=== PATIENT | male | born 1980 | race Caucasian/White ===

== ENCOUNTER 2016-05-29 08:19 | Outpatient (CLI) ==
[2016-01-03 19:17] VITALS: BMI 30.4
--- NOTE | 2016-05-29 08:51 | US ---
EXAM: Thyroid ultrasound History: Thyroid nodules. Comparison: Thyroid ultrasound 01/31/2011 Technique: Multiple sonographic images through the thyroid gland were obtained. Color duplex Doppl er was used to interrogate vascular flow. Findings: The right lobe of the thyroid measures 4.6 cm x 1.5 cm x 1.7 cm and demonstrates a 0.8 cm hypoechoic nodule. The thyroid isthmus measures 0.3 cm in thickness. The left lobe the thyroid measures 4.4 cm x 1.6 cm x 1.6 cm and demonstrates a 0.7 cm hypoechoic nod ule. The thyroid gland is not hypervascular. No extrathyroidal masses are identified. Impression: Sub-centimeter bilateral thyroid nodules. Recommend followup study in 6 months to docu ment stability.
== END 2016-05-29 08:20 | disposition home or self-care (01) ==
LOC: RAD 08:19
PROVIDERS: ATTEND Internal Medicine Endocrinology, Diabetes & Metabolism
DX: E04.1 Nontoxic single thyroid nodule (principal); R94.6 Abnormal results of thyroid function studies; E10.65 Type 1 diabetes mellitus with hyperglycemia; I10 Essential (primary) hypertension; F31.9 Bipolar disorder, unspecified

== ENCOUNTER 2016-06-24 10:10 | Outpatient (CLI) ==
[2016-01-03 19:17] VITALS: BMI 30.4
[2016-06-24 11:08] LABS: ALBUMIN 4.1 g/dL (3.4-5.0); ALBUMIN/GLOBULIN RATIO 1.41; ANION GAP 11.4; BILIRUBIN,TOTAL 0.85 mg/dL (0.00-1.20); BUN/CREATININE RATIO 19.41; CALCIUM 9.3 mg/dL (8.2-10.2); CREATININE 1.03 mg/dL (0.60-1.10); POTASSIUM 4.4 mmol/L (3.5-5.1)
== END 2016-06-24 10:11 | disposition home or self-care (01) ==
LOC: LAB 10:10
PROVIDERS: ATTEND Internal Medicine Endocrinology, Diabetes & Metabolism
DX: F31.9 Bipolar disorder, unspecified (principal); I10 Essential (primary) hypertension; R94.6 Abnormal results of thyroid function studies; E04.1 Nontoxic single thyroid nodule; E10.65 Type 1 diabetes mellitus with hyperglycemia
CPT/HCPCS: 36415; 80053; 83036; 84439; 84443; 84480

== ENCOUNTER 2017-02-26 23:27 | Outpatient (CLI) ==
[2016-01-03 19:17] VITALS: BMI 30.4
== END 2017-02-26 23:28 | disposition short-term general hospital (02) ==
LOC: AMBL 23:27
PROVIDERS: ATTEND Emergency Medicine
DX: R41.82 Altered mental status, unspecified (principal); E11.9 Type 2 diabetes mellitus without complications

== ENCOUNTER 2017-06-26 08:06 | Outpatient (CLI) | payer OTHER ==
[2016-01-03 19:17] VITALS: BMI 30.4
== END 2017-06-26 08:07 | disposition home or self-care (01) ==
LOC: LAB 08:06
PROVIDERS: ATTEND Internal Medicine Endocrinology, Diabetes & Metabolism
DX: F31.9 Bipolar disorder, unspecified (principal); I10 Essential (primary) hypertension; R94.6 Abnormal results of thyroid function studies; E04.1 Nontoxic single thyroid nodule; E10.65 Type 1 diabetes mellitus with hyperglycemia
CPT/HCPCS: 36415; 80053; 82306; 82533; 82607; 83036; 84439; 84443

== ENCOUNTER 2017-07-12 00:38 | Emergency (ER) ==
--- NOTE | 2017-07-12 01:22 | DI ---
Exam: The right ankle three-view History: Injury and pain Findings / impression: No bony or articular abnormalities are seen. Negative exam.
[2017-07-12 01:24] VITALS: BP 175/94; TEMP 97.9; BMI 33.4
--- NOTE | 2017-07-12 01:38 | DI ---
Exam: Right foot three-view HISTORY: Injury and pain Findings / impression: No bony or articular abnormality. Negative exam.
[2017-07-12] MEDS ORDERED: NORCO 7.5-325 PO STA (01:49)
--- NOTE | 2017-07-12 01:50 | ED.PDOC ---
General ED Provider: Dr. LOY RASCON-ER Chief Complaint: Ankle Pain/Injury Stated Complaint: i rolled my ankle Time Seen by Physician: 00:45 Mode of Arrival: Walk-In Information Source: Patient Exam Limitations: No limitations Primary Care Provider: LOY RASCON Nursing and Triage Documentation Reviewed and Agree: Yes Reviewed sepsis parameters & appropriate labs ordered?: Yes System Inflammatory Response Syndrome: Not Applicable Sepsis Protocol: For patient's 13 years and over: Temp is 96.8 and below OR 101 and greater Pulse >90 BPM Resp >20/minute Acutely Altered Mental Status Are patient's symptoms suggestive of a new infection, such as: -Pneumonia -Skin, Soft Tissue -Endocarditis -UTI -Bone, Joint Infection -Implantable Device -Acute Abdominal Infection -Wound Infection -Meningitis -Blood Stream Catheter Infection -Unknown Musculoskeletal Complaint Exam - Ankle/Foot Complaint/Exam Location of Injury: Reports: Right, Ankle Mechanism of Injury: Reports: Trauma Onset/Duration: this evening Symptoms Are: Reports: Still present Onset of Pain: Reports: Immediate Initial Severity: Mild Current Severity: Moderate Location: Reports: Discrete Character: Reports: Dull, Aching, Throbbing Aggravating: Reports: Movement, Weight bearing Able to Bear Weight: Yes Associated Signs and Symptoms: Reports: Swelling Related History: Reports: Similar episode Lower Extremity Findings: Present: Swelling, Ecchymosis, Tenderness, Limited range of motion Achilles Tendon Abnormality: No Tenderness: Present: Lateral malleolus Limited Range of Motion: Present: Inversion, Eversion Differential Diagnosis: Sprain, Strain, Tendonitis Review of Systems - Review Of Systems Constitutional: Reports: No symptoms Eyes: Reports: No symptoms Ears, Nose, Mouth, Throat: Reports: No symptoms Respiratory: Reports: No symptoms Cardiac: Reports: No symptoms GI: Reports: No symptoms : Reports: No symptoms Musculoskeletal: Reports: Joint pain, Muscle pain Skin: Reports: No symptoms Neurological: Reports: No symptoms Endocrine: Reports: No symptoms Hematologic/Lymphatic: Reports: No symptoms All Other Systems: Reviewed and Negative Past Medical History - Past Medical History Previously Healthy: Yes Endocrine: Reports: DM 1 Cardiovascular: Reports: None Respiratory: Reports: Pneumonia Hematological: Reports: None Gastrointestinal: Reports: None Genitourinary: Reports: CKD Neuro/Psych: Reports: Anxiety, Depression, Bipolar Disorder Musculoskeletal: Reports: None Cancer: Reports: None - Surgical History General Surgical History: Reports: Unknown - Family History Family History: Reports: Unknown - Social History Smoking Status: Current every day smoker, Heavy tobacco smoker Hx Substance Use: Yes (ALCOHOL IN THE PAST) Alcohol Screening: None - Immunizations Tetanus Shot up to Date: Yes Physical Exam - Physical Exam Appearance: Well-appearing, No pain distress, Well-nourished Eyes: DEACON, EOMI, Conjunctiva clear ENT: Ears normal, Nose normal, Oropharynx normal Neck: Supple Respiratory: Airway patent, Breath sounds clear, Breath sounds equal, Respirations nonlabored Cardiovascular: RRR, Pulses normal, No rub, No murmur GI/: Soft, Nontender, No masses, Bowel sounds normal, No Organomegaly Musculoskeletal: Normal strength, ROM intact, No edema, No calf tenderness Skin: Warm, Dry, Normal color Neurological: Sensation intact, Motor intact, Reflexes intact, Cranial nerves intact, Alert, Oriented Psychiatric: Affect appropriate, Mood appropriate Interpretation - Radiology Interpretation Radiology Interpretation By: Radiologist Radiology Results: Negative Critical Care Note - Critical Care Note Total Time (mins): 0 Course - Course Orders, Labs, Meds: Orders Category Date Time Status Air cast [ED SPLINT APPLICATION] .ONCE EMERGENCY 07/12/17 01:47 Active ED CASSIDY WRAP .ONCE EMERGENCY 07/12/17 01:47 Active Hydrocodone Bit/Acetaminophen [[place] 7.5-325] MEDS 07/12/17 01:49 Discontinued 1 tab PO ONCE STA ANKLE, RIGHT MIN 3 VIEWS Stat RADS 07/12/17 01:05 Completed FOOT, RIGHT 3 VIEWS Stat RADS 07/12/17 01:17 Completed Medications Discontinued Medications Generic Name Dose Route Start Last Admin Trade Name Freq PRN Reason Stop Dose Admin Hydrocodone Bitart/Acetaminophen 1 tab 07/12/17 01:49 07/12/17 01:58 [place] 7.5-325 PO 07/12/17 01:50 Not Given ONCE STA Vital Signs: Temp Pulse Resp BP Pulse Ox 07/12/17 00:39 97.9 F 95 H 18 175/94 H 96 Departure - Departure Time of Disposition: 01:50 Disposition: HOME SELF-CARE Discharge Problem: Ankle pain Instructions: Ankle Sprain (ED) Condition: Good Pt referred to PMD for follow-up: Yes IPMP verified?: No Additional Instructions: toradol 10mg qid prn pain #16---f/u with me prn Allergies/Adverse Reactions: Allergies No Known Allergies Allergy (Verified 07/12/17 00:48) Home Medications: Ambulatory Orders Insulin Lispro [Humalog] 100 unit SQ DIRECTED 11/09/12 Lamotrigine [Lamictal] 200 mg PO BID 02/03/13 Levetiracetam [Keppra] 500 mg PO BID 07/12/17 Lisinopril 10 mg PO DAILY 07/12/17 Disposition Discussed With: Patient, Family
== END 2017-07-12 01:59 | disposition home or self-care (01) ==
LOC: ED 00:38
DX: S93.401A Sprain of unspecified ligament of right ankle, initial encounter (principal); X01.0XXA Exposure to flames in uncontrolled fire, not in building or structure, initial encounter; F17.210 Nicotine dependence, cigarettes, uncomplicated
CPT/HCPCS: 99282